=== PATIENT | male | born 1960 | race Caucasian/White ===

== ENCOUNTER 2018-04-20 13:43 | Inpatient (IN) | payer MEDICARE ==
[2018-04-20 17:20] VITALS: BMI 41.2
[2018-04-20] MEDS ORDERED: Zolpidem Tartrate 5 MG TAB PO PRN (18:13)
[2018-04-20] MEDS ORDERED: Bisacodyl 5 MG TAB PO PRN (18:13)
[2018-04-20] MEDS ORDERED: Acetaminophen 325 MG TAB PO PRN (18:13)
[2018-04-20] MEDS ORDERED: Acetaminophen/Codeine 30-300mg Tablet PO PRN (18:18)
[2018-04-20] MEDS: Acetaminophen/Codeine 30-300mg Tablet PO PRN (19:53)
[2018-04-20] MEDS: Meclizine HCl 25 MG TAB PO SCH (21:03)
[2018-04-20] MEDS: Atorvastatin Calcium 10 MG TAB PO SCH (21:04)
[2018-04-20] MEDS: Ondansetron ODT 4 MG TAB PO PRN (21:22)
--- NOTE | 2018-04-21 01:48 | HP ---
ADMITTING PHYSICIAN: Bucky Espinoza MD PRIMARY CARE PHYSICIAN: Dr. Natanael Lilly. REASON FOR ADMISSION: For skilled rehabilitation at [facility] secondary to a CVA, status post tPA and Prado's palsy. HISTORY OF PRESENT ILLNESS: Mr. Patel is a 58-year-old male with a medical history of hypertension and depression, who presented to the emergency room on 04/15 with his due to weakness on the right side of the face, facial droop, and facial numbness while he was brushing his teeth. The patient drove him to the emergency room and she states on the way to the ED, she noted his speech was becoming slurred and his face became weaker. Upon evaluation in the emergency room, the patient had a CT cerebral angiogram, which did not show any abnormalities, but the patient did receive IV tPA. The patient was seen by neurologist and transferred to the Stroke Unit. During hospitalization, he did have some resolution of the numbness, but continued to have the facial droop. The patient also had a regular CT of the brain, which was negative and he was noted to have a normal MRI of the brain. Echocardiogram was unremarkable. Repeat CT of the brain in the hospital after 24 hours of tPA was also negative. 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 The patient's presentation was consistent with vertigo and 7th nerve palsy. He was started on symptomatic treatments with Antivert as well as prednisone. The patient and decided to go to skilled rehabilitation for help due to being physically deconditioned and to help improve with his strength prior to going back to his home. During hospitalization, the patient continued to have headaches and nausea, and he was started on Tylenol No. 3 for this, which helped with the pain and Zofran for the nausea. Upon evaluation of the patient today, he was excited to be in skilled rehab in order to gain his strength back prior to discharge back to his home with his . The patient complained of constipation, and he stated that he has had couple of bowel movements, but he just feels he is still constipated due to the pain medications. He complains of headache and nausea and states the Tylenol No. 3 does help with the pain. The patient's noted that we advised to follow up with ENT as an outpatient due to his swelling and pain to the right ear. The patient denies any fever. Denies any chest pain. Denies any abdominal pain. Denies any palpitations or dizziness. PAST MEDICAL HISTORY: Hypertension. PAST SURGICAL HISTORY: Cervical diskectomy and fusion in 2016. FAMILY HISTORY: Father had CVA, at 59. Mother at age of 70, she had a CVA at age of 65. 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 Does not drink alcohol. He has been on disability due to back problems. MEDICATIONS: 1. Amlodipine and benazepril 5/20 mg daily. 2. Sertraline 100 mg daily. 3. Diazepam 5 mg b.i.d. p.r.n. anxiety. 4. Hydrochlorothiazide 25 mg daily. 5. Artificial Tears as directed. 6. Aspirin 81 mg daily. 7. Lipitor 40 at bedtime. 8. Protonix 40 daily. 9. Prednisone 40 daily x5 days, then taper 10 mg every 2 days until finished. 10. Antivert 25 mg p.o. t.i.d. ALLERGIES: NO KNOWN DRUG ALLERGIES. REVIEW OF SYSTEMS: PULMONARY: Negative for shortness of breath. CARDIAC: Negative for palpitations or chest pain. GI: Negative for vomiting. Positive for nausea. Positive for constipation. NEUROLOGIC: Positive for facial weakness, right-sided numbness. GENERAL: Negative for fevers or chills. HEENT: No nosebleed, trouble swallowing, oral pain, or vision changes. SKIN: Denies any bruises. PHYSICAL EXAMINATION: VITAL SIGNS: Temperature 98.5, pulse 76, respirations 18, O2 sat 95% on room air, and blood pressure 137/73. GENERAL: The patient is an obese gentleman, lying comfortably in bed. HEENT: Normocephalic and atraumatic. Oral mucous membranes are moist. Face; facial asymmetry with right-sided facial droop and right-sided facial weakness. The patient is able to move this tongue, decreased sensation to the right side of the face. Normal hearing bilaterally. Right ear canal is mildly swollen. NECK: Supple. No JVD. CHEST: Clear to auscultation bilaterally. HEART: S1 and S2 normal. Regular rate and rhythm. No murmurs, no gallops. ABDOMEN: Soft, positive bowel sounds. Mildly distended and obese. Nontender. EXTREMITIES: No cyanosis, clubbing, or edema. NEUROLOGIC: Right-sided facial droop. Alert, awake, and oriented x3. ASSESSMENT: 1. Physical debility. 2. Prado's palsy. 3. Suspected cerebrovascular accident, status post tPA. 4. Hypokalemia. 5. Obstructive sleep apnea, on CPAP. 6. Anxiety with depression. 7. Obesity with BMI over 39. PLAN: The patient has been admitted to [facility] for skilled rehabilitation and gait strengthening. We will consult Physical Therapy for strengthening in order to gain modified independence with his gait and Occupational Therapy to help with activities of daily living. We will resume medications started in the hospital. We will continue the patient on the steroids and taper off as recommended. We will place the patient on Tylenol No. 3 p.r.n. for pain. We will place the patient on nausea medicine with Zofran. We will place the patient on Senokot as needed for constipation, and we will place the patient on Colace routinely to help with this. We will help make followup appointment with ENT as recommended. We will place the patient on Protonix for GI prophylaxis and SCDs for DVT prophylaxis. ESTIMATED LENGTH OF STAY: 2 to 3 weeks. DISPOSITION: Home. CODE STATUS: Full code. Job ID: [id number] MTDD
[2018-04-21] MEDS: Artificial Tear Sol 15 ML BOT R EYE PRN ×2 (05:38→08:04)
[2018-04-21] MEDS: Acetaminophen/Codeine 30-300mg Tablet PO PRN ×4 (05:45→19:18)
[2018-04-21] MEDS: Ondansetron ODT 4 MG TAB PO PRN ×3 (05:45→19:19)
[2018-04-21] MEDS: Diazepam 5 MG TAB PO PRN ×2 (08:03→20:20)
[2018-04-21] MEDS: Hydrochlorothiazide 25 MG TAB PO SCH (08:04)
[2018-04-21] MEDS: Meclizine HCl 25 MG TAB PO SCH ×3 (08:05→20:21)
[2018-04-21] MEDS: Docusate 100 MG CAP PO SCH (08:05)
[2018-04-21] MEDS: predniSONE 20 MG TAB PO SCH (08:06)
[2018-04-21] MEDS: Aspirin 81 mg Enteric Coated Tablet PO SCH (08:06)
[2018-04-21] MEDS: BENAZEPRIL PO SCH (08:25)
[2018-04-21] MEDS: AMLODIPINE BESYLATE PO SCH (08:25)
[2018-04-21] MEDS ORDERED: AMLODIPINE BESYLATE PO SCH (09:00)
[2018-04-21] MEDS ORDERED: BENAZEPRIL PO SCH (09:00)
[2018-04-21] MEDS ORDERED: Amlodipine 5 MG TAB PO SCH (09:00)
[2018-04-21] MEDS: Atorvastatin Calcium 10 MG TAB PO SCH (20:21)
[2018-04-22] MEDS: Ondansetron ODT 4 MG TAB PO PRN ×3 (02:30→20:05)
[2018-04-22] MEDS: Acetaminophen/Codeine 30-300mg Tablet PO PRN ×4 (02:31→20:04)
[2018-04-22] MEDS: predniSONE 20 MG TAB PO SCH (08:02)
[2018-04-22] MEDS: Docusate 100 MG CAP PO SCH (09:04)
[2018-04-22] MEDS: Aspirin 81 mg Enteric Coated Tablet PO SCH (09:04)
[2018-04-22] MEDS: Hydrochlorothiazide 25 MG TAB PO SCH (09:04)
[2018-04-22] MEDS: Meclizine HCl 25 MG TAB PO SCH ×3 (09:04→20:07)
[2018-04-22] MEDS: AMLODIPINE BESYLATE PO SCH (09:05)
[2018-04-22] MEDS: BENAZEPRIL PO SCH (09:05)
[2018-04-22] MEDS: Diazepam 5 MG TAB PO PRN (13:12)
[2018-04-22] MEDS: Diazepam 5 MG TAB PO SCH (20:05)
[2018-04-22] MEDS: Atorvastatin Calcium 10 MG TAB PO SCH (20:06)
[2018-04-23] MEDS: Acetaminophen/Codeine 30-300mg Tablet PO PRN ×4 (05:12→20:24)
[2018-04-23] MEDS: Ondansetron ODT 4 MG TAB PO PRN ×2 (05:13→12:30)
[2018-04-23] MEDS: predniSONE 20 MG TAB PO SCH (08:00)
[2018-04-23] MEDS: Aspirin 81 mg Enteric Coated Tablet PO SCH (08:00)
[2018-04-23] MEDS: Diazepam 5 MG TAB PO SCH ×2 (08:00→20:23)
[2018-04-23] MEDS: Meclizine HCl 25 MG TAB PO SCH ×3 (08:01→20:23)
[2018-04-23] MEDS: Hydrochlorothiazide 25 MG TAB PO SCH (08:01)
[2018-04-23] MEDS: Docusate 100 MG CAP PO SCH (08:01)
[2018-04-23] MEDS: AMLODIPINE BESYLATE PO SCH (09:10)
[2018-04-23] MEDS: BENAZEPRIL PO SCH (09:10)
[2018-04-23] MEDS: Atorvastatin Calcium 10 MG TAB PO SCH (20:23)
[2018-04-24] MEDS: predniSONE 20 MG TAB PO SCH (08:17)
[2018-04-24] MEDS: Ondansetron ODT 4 MG TAB PO PRN ×2 (08:17→20:14)
[2018-04-24] MEDS: Docusate 100 MG CAP PO SCH (09:08)
[2018-04-24] MEDS: Aspirin 81 mg Enteric Coated Tablet PO SCH (09:08)
[2018-04-24] MEDS: Diazepam 5 MG TAB PO SCH ×2 (09:08→21:07)
[2018-04-24] MEDS: Hydrochlorothiazide 25 MG TAB PO SCH (09:08)
[2018-04-24] MEDS: Meclizine HCl 25 MG TAB PO SCH ×3 (09:08→21:07)
[2018-04-24] MEDS: BENAZEPRIL PO SCH (09:09)
[2018-04-24] MEDS: AMLODIPINE BESYLATE PO SCH (09:09)
[2018-04-24] MEDS: Acetaminophen/Codeine 30-300mg Tablet PO PRN ×2 (12:11→20:14)
[2018-04-24] MEDS: Atorvastatin Calcium 10 MG TAB PO SCH (21:06)
[2018-04-25] MEDS: Ondansetron ODT 4 MG TAB PO PRN (01:54)
[2018-04-25] MEDS: Acetaminophen/Codeine 30-300mg Tablet PO PRN ×2 (01:55→08:23)
[2018-04-25] MEDS: Meclizine HCl 25 MG TAB PO SCH ×2 (08:22→15:18)
[2018-04-25] MEDS: Aspirin 81 mg Enteric Coated Tablet PO SCH (08:22)
[2018-04-25] MEDS: predniSONE 20 MG TAB PO SCH (08:23)
[2018-04-25] MEDS: Diazepam 5 MG TAB PO SCH ×2 (08:23→20:36)
[2018-04-25] MEDS: Docusate 100 MG CAP PO SCH (08:23)
[2018-04-25] MEDS: BENAZEPRIL PO SCH (08:24)
[2018-04-25] MEDS: Hydrochlorothiazide 25 MG TAB PO SCH (08:24)
[2018-04-25] MEDS: AMLODIPINE BESYLATE PO SCH (08:24)
[2018-04-25] MEDS: Atorvastatin Calcium 10 MG TAB PO SCH (20:36)
[2018-04-26] MEDS: Ondansetron ODT 4 MG TAB PO PRN ×3 (06:04→19:20)
[2018-04-26] MEDS: Docusate 100 MG CAP PO SCH (07:59)
[2018-04-26] MEDS: Aspirin 81 mg Enteric Coated Tablet PO SCH (07:59)
[2018-04-26] MEDS: predniSONE 20 MG TAB PO SCH (07:59)
[2018-04-26] MEDS: Diazepam 5 MG TAB PO SCH ×2 (07:59→20:40)
[2018-04-26] MEDS: Hydrochlorothiazide 25 MG TAB PO SCH (07:59)
[2018-04-26] MEDS: BENAZEPRIL PO SCH (08:00)
[2018-04-26] MEDS: AMLODIPINE BESYLATE PO SCH (08:00)
[2018-04-26] MEDS: Acetaminophen/Codeine 30-300mg Tablet PO PRN ×3 (08:01→19:19)
[2018-04-26] MEDS: Senokot S 8.6-50 MG TAB PO PRN (19:19)
[2018-04-26] MEDS: Atorvastatin Calcium 10 MG TAB PO SCH (20:40)
[2018-04-27] MEDS: Acetaminophen/Codeine 30-300mg Tablet PO PRN ×2 (04:51→20:37)
[2018-04-27] MEDS: Ondansetron ODT 4 MG TAB PO PRN ×2 (04:52→20:38)
[2018-04-27] MEDS: Aspirin 81 mg Enteric Coated Tablet PO SCH (08:51)
[2018-04-27] MEDS: predniSONE 20 MG TAB PO SCH (08:51)
[2018-04-27] MEDS: Docusate 100 MG CAP PO SCH (08:51)
[2018-04-27] MEDS: Hydrochlorothiazide 25 MG TAB PO SCH (08:51)
[2018-04-27] MEDS: AMLODIPINE BESYLATE PO SCH (08:52)
[2018-04-27] MEDS: Diazepam 5 MG TAB PO SCH ×2 (08:52→20:38)
[2018-04-27] MEDS: BENAZEPRIL PO SCH (08:52)
[2018-04-27] MEDS: Atorvastatin Calcium 10 MG TAB PO SCH (20:38)
[2018-04-27] MEDS: Senokot S 8.6-50 MG TAB PO PRN (20:42)
[2018-04-28] MEDS: Acetaminophen/Codeine 30-300mg Tablet PO PRN (05:38)
[2018-04-28] MEDS: Ondansetron ODT 4 MG TAB PO PRN (05:39)
[2018-04-28] MEDS: predniSONE 20 MG TAB PO SCH (07:57)
[2018-04-28] MEDS: Diazepam 5 MG TAB PO SCH ×2 (07:59→14:45)
[2018-04-28] MEDS: Aspirin 81 mg Enteric Coated Tablet PO SCH (07:59)
[2018-04-28] MEDS: Docusate 100 MG CAP PO SCH (07:59)
[2018-04-28] MEDS: AMLODIPINE BESYLATE PO SCH (08:00)
[2018-04-28] MEDS: Hydrochlorothiazide 25 MG TAB PO SCH (08:00)
[2018-04-28] MEDS: BENAZEPRIL PO SCH (08:00)
[2018-04-28 08:46] VITALS: BP 133/77; TEMP 97.1
--- NOTE | 2018-04-29 05:40 | DIS ---
DATE OF ADMISSION: 04/20/2018 DATE OF DISCHARGE: 04/28/2018 DISCHARGING PHYSICIAN: Bucky Espinoza MD PRIMARY CARE PHYSICIAN: Dr. Natanael Lilly. DISCHARGE DIAGNOSES: 1. Generalized weakness. 2. Prado's palsy. 3. Meniere's disease. 4. Cerebrovascular accident, status post tPA. 5. Depression. DISCHARGE MEDICATIONS: 1. Amlodipine and benazepril 5/20 daily. 2. Sertraline 100 daily. 3. Valium 5 mg t.i.d. 4. Hydrochlorothiazide 25. 5. Aspirin 81 daily. 6. Lipitor 40 at bedtime. 7. Tylenol No. 3 one tab q.6 p.r.n., #30. DISCHARGE INSTRUCTIONS: Follow up with ENT, Dr. Atkinson, on April 29, 2018. Follow up with PCP, Dr. Natanael Lilly within 1 week. Continue outpatient physical therapy at [facility]. BRIEF HOSPITAL COURSE: Mr. Patel is a 58-year-old male who was admitted to [facility] on April 15, 2018 due to suspected CVA, status post tPA in the ED. The patient was seen by neurologist and he had a CT cerebral angiogram, CT of the brain, and repeat CT status post tPA, which were all negative. The patient' s presentation was consistent with vertigo and 7th nerve palsy, so he was noted to have Prado's palsy. The patient was started on steroid, and facial numbness and drooping significantly started to improve. The patient did complain of vertigo and he was put on Antivert, which with the prednisone helped. The patient complained of right-sided ear pain. He was started on Tylenol No. 3. He had significant nausea and he was put on Zofran for this. The patient was noted to be physically weak and decision was made to transfer the patient to [facility] in [place] and follow up with an outpatient ENT evaluation. During hospitalization at [place], he was started with physical therapy and he slowly improved. He was able to follow up with ENT specialist Dr. Atkinson who diagnosed him with Meniere's disease. Dr. Atkinson also injected him with some steroids at the right ear and the patient states that started the improvement of the swelling and pain on the right side. During hospitalization, his right-sided facial droop continued to improve and the patient continued to improve also significantly with physical therapy. By day of discharge, April 28, the patient was able to ambulate without the use of a walker about 300 feet. The patient and decided it was best for him to be discharged and follow up outpatient with Physical Therapy. The patient was able to follow up with Dr. Atkinson again on the for another steroid shot and he recommended his Antivert be discontinued and Valium be increased, which the patient states once this was done, improved his symptoms. The patient was discharged home in a stable condition. DISCHARGE VITAL SIGNS: Blood pressure 133/77, oxygen on room air 98, respirations 18, pulse 61, temperature 97.1. Total time in preparation of this discharge summary and evaluation of the patient was a total of 35 minutes. The patient is a full code. The patient was discharged back home in a stable condition with his family member with proper discharge instructions. Job ID: [id number] MTDD
== END 2018-04-28 16:00 | disposition home or self-care (01) | DRG 74 ==
LOC: MADMS 16:38
PROVIDERS: ADMIT Family Medicine; ATTEND Family Medicine
DX: G51.0 Bell's palsy (principal); R53.81 Other malaise; E87.6 Hypokalemia; G47.33 Obstructive sleep apnea (adult) (pediatric); H81.01 Meniere's disease, right ear; F41.8 Other specified anxiety disorders; K59.00 Constipation, unspecified; I10 Essential (primary) hypertension; E66.9 Obesity, unspecified; Z68.39 Body mass index [BMI] 39.0-39.9, adult; Z98.1 Arthrodesis status; Z79.82 Long term (current) use of aspirin; Z79.899 Other long term (current) drug therapy; Z86.73 Personal history of transient ischemic attack (TIA), and cerebral infarction without residual deficits
CPT/HCPCS: J7506; Q0162

== ENCOUNTER 2024-01-06 17:38 | Emergency (ER) | payer MEDICARE ==
[2024-01-06 18:34] LABS: Bilirubin Negative (Negative); Blood, Urine Negative (Negative); Clarity Clear (Clear); Glucose, Urine (Dipstick) Negative (Negative); Ketone, Urine Negative (Negative); Leukocyte Negative (Negative); Nitrite Negative (Negative); Protein, Urine (Dipstick) Negative (Neg-Trace); Specific Gravity, Urine 1.015 (1.005-1.030); Urobilinogen 0.2 mg/dL (Less than 2); pH, Urine 6.5 (5.0-9.0)
[2024-01-06 18:37] LABS: CAUTI Indications for Culture Pelvic or flank pain; RBC/HPF 0-3 HPF (0-3); Squamous Epithelial 0-3 HPF (0-3); WBC/HPF None Seen HPF (0-3)
[2024-01-06 18:38] LABS: Bacteria/HPF Rare-Few HPF (None Seen); Urine Culture Reflex No No
[2024-01-06] MEDS ORDERED: Ketorolac Tromethamine 30 MG (1 mL) VIAL ONE (18:51)
[2024-01-06] MEDS ORDERED: Sodium Chloride 0.9% 1,000 ML ONE (18:51)
[2024-01-06] MEDS ORDERED: Ondansetron PF 4 MG/2 ML Vial ONE (19:14)
[2024-01-06 19:18] LABS: #Basophils 0.1 thou/uL (0.0-0.2); #Eosinphils 0.3 thou/uL (0.0-0.7); #Lymphocytes 2.4 thou/uL (1.20-3.40); #Monocytes 0.9 thou/uL (0.11-0.59); #Neutrophils 5.5 thou/uL (1.40-6.50); %Basophils 1.5 % (0.0-1.0); %Eosinophils 2.9 % (0.0-10.0); %Lymphocytes 26.6 % (21.0-51.0); %Monocytes 9.5 % (0.0-10.0); %Neutrophils 59.6 % (42.0-75.0); Hematocrit 46.3 % (42.0-52.0); Hemoglobin 15.2 g/dL (14.0-18.0); Mean Corpuscular HGB CONC 32.8 g/dL (32.0-36.0); Mean Corpuscular Volume 91.4 fl (78.0-98.0); Mean Platelet Volume 8.3 fL (7.4-10.4); Platelet Count 157 10x3/uL (130-400); Red Blood Cell (RBC) Count 5.07 mill/uL (4.70-6.10); White Blood Cell (WBC) Count 9.2 10x3/uL (4.8-10.8)
[2024-01-06 19:34] LABS: ALT (SGPT) 26 U/L (8-55); AST (SGOT) 24 U/L (5-34); Albumin 4.1 g/dL (3.4-4.8); Alkaline Phosphatase 56 U/L (40-110); Anion Gap 16 mmol/L (10-20); BUN (Urea Nitrogen) 22 mg/dL (8.4-25.7); Bilirubin, Total 0.6 mg/dL (0.2-1.2); Calc. Creatinine Clearance 0 mL/min (70-130); Calcium 9.7 mg/dL (7.8-10.44); Carbon Dioxide 23 mmol/L (23-31); Chloride 104 mmol/L (98-107); Estimated GFR 98; Globulin 3.9 g/dL (2.4-3.5); Glucose 90 mg/dL (80-115); Potassium 3.9 mmol/L (3.5-5.1); Sodium 139 mmol/L (136-145)
[2024-01-06] MEDS ORDERED: Tamsulosin HCl 0.4 MG CAP ONE (21:11)
[2024-01-06] MEDS ORDERED: Naproxen 500 MG TAB ONE (21:11)
== END 2024-01-06 21:30 | disposition home or self-care (01) ==
LOC: MADERS 17:38
DX: R33.9 Retention of urine, unspecified (principal); I10 Essential (primary) hypertension
CPT/HCPCS: 74176; 80053; 81001; 85025; 87086; 96374; 96375; J1885; J2405; J7030

== ENCOUNTER 2024-02-22 03:12 | Emergency (ER) | payer MEDICARE ==
[2024-02-22 03:41] LABS: Bilirubin Negative (Negative); Blood, Urine Negative (Negative); Glucose, Urine (Dipstick) Negative (Negative); Ketone, Urine Negative (Negative); Leukocyte Negative (Negative); Nitrite Negative (Negative); Protein, Urine (Dipstick) Negative (Neg-Trace); Urobilinogen 0.2 mg/dL (Less than 2)
[2024-02-22 03:42] LABS: Clarity Clear (Clear)
[2024-02-22 03:43] LABS: Bacteria/HPF Rare-Few HPF (None Seen); CAUTI Indications for Culture Dysuria,urgency,freq; RBC/HPF 0-3 HPF (0-3); Squamous Epithelial 0-3 HPF (0-3); Urine Culture Reflex No No; WBC/HPF 0-3 HPF (0-3)
[2024-02-22] MEDS ORDERED: Ketorolac Tromethamine 30 MG (1 mL) VIAL ONE (04:25)
[2024-02-22] MEDS ORDERED: Ondansetron PF 4 MG/2 ML Vial ONE (04:25)
[2024-02-22] MEDS ORDERED: Sodium Chloride 0.9% 1,000 ML ONE (04:26)
[2024-02-22 04:31] LABS: #Basophils 0.1 thou/uL (0.0-0.2); #Eosinophils 0.1 thou/uL (0.0-0.7); #Lymphocytes 1.5 thou/uL (1.20-3.40); #Monocytes 0.8 thou/uL (0.11-0.59); #Neutrophils 8.3 thou/uL (1.40-6.50); %Basophils 0.8 % (0.0-1.0); %Lymphocytes 13.8 % (21.0-51.0); %Monocytes 7.6 % (0.0-10.0); %Neutrophils 76.8 % (42.0-75.0); Hematocrit 42.7 % (42.0-52.0); Hemoglobin 14.6 g/dL (14.0-18.0); Mean Corpuscular HGB CONC 34.2 g/dL (32.0-36.0); Mean Corpuscular Hemoglobin 30.3 pg (27.0-31.0); Mean Corpuscular Volume 88.8 fl (78.0-98.0); Mean Platelet Volume 7.6 fL (7.4-10.4); Platelet Count 171 10x3/uL (130-400); RBC Distribution Width 11.9 % (11.5-14.5); Red Blood Cell (RBC) Count 4.81 mill/uL (4.70-6.10); White Blood Cell (WBC) Count 10.8 10x3/uL (4.8-10.8)
[2024-02-22 04:48] LABS: ALT (SGPT) 30 U/L (8-55); AST (SGOT) 27 U/L (5-34); Albumin 3.8 g/dL (3.4-4.8); Alkaline Phosphatase 63 U/L (40-110); Anion Gap 15 mmol/L (10-20); BUN (Urea Nitrogen) 17 mg/dL (8.4-25.7); Bilirubin, Total 0.5 mg/dL (0.2-1.2); Calc. Creatinine Clearance 0 mL/min (70-130); Carbon Dioxide 27 mmol/L (23-31); Chloride 104 mmol/L (98-107); Estimated GFR 91; Globulin 3.7 g/dL (2.4-3.5); Glucose 117 mg/dL (80-115); Protein, Total 7.5 g/dL (5.8-8.1); Sodium 142 mmol/L (136-145)
[2024-02-22] MEDS ORDERED: Morphine 4 MG/ML VIAL ONE (05:22)
[2024-02-22] MEDS ORDERED: Promethazine HCl 25 MG/ML VIAL ONE (05:24)
[2024-02-22] MEDS ORDERED: Iopamidol 370 76% 100 ML VIAL ONE (09:00)
== END 2024-02-22 06:50 | disposition home or self-care (01) ==
LOC: MADERS 03:12
DX: K59.00 Constipation, unspecified (principal); I10 Essential (primary) hypertension; Z79.899 Other long term (current) drug therapy
CPT/HCPCS: 74177; 80053; 81001; 85025; 96374; 96375; J1885; J2272; J2405; J2550; J7030; Q9967